=== PATIENT | female | born 1980 | race Caucasian/White ===

== ENCOUNTER 2017-07-01 15:44 | Emergency (ER) | payer OTHER ==
[~2017-07-01] VITALS: Ht 157.5 cm; Wt 85.3 kg
[2017-07-01 15:49] VITALS: BP 132/77; Ht 157.5 cm; Wt 85.3 kg
== END 2017-07-01 17:20 | disposition left against medical advice (07) ==
LOC: ED 15:44
DX: Z53.21 Procedure and treatment not carried out due to patient leaving prior to being seen by health care provider (principal)